=== PATIENT | female | born 1950 | race Caucasian/White ===

== ENCOUNTER 2017-12-28 11:00 | Inpatient (IN) | payer OTHER ==
[~2017-12-28] VITALS: Ht 162.6 cm; Wt 83.5 kg
[2017-12-28] MEDS ORDERED: COREG CR40 MG PO (12:18)
[2017-12-28] MEDS ORDERED: JANUVIA100 MG PO (12:18)
[2017-12-28] MEDS ORDERED: GLIPIZIDE ER10 MG PO (12:19)
[2017-12-28] MEDS ORDERED: CARDURA1 MG PO (12:19)
[2017-12-28] MEDS ORDERED: ZOCOR5 MG PO (12:23)
[2018-01-05] MEDS ORDERED: DOCUSATE SODIU100 MG PO (09:47)
[2018-01-05] MEDS ORDERED: PERCOCET 5-3251 EACH PO (09:48)
[2018-01-05] MEDS ORDERED: CLONAZEPAM1 MG PO (09:48)
== END 2018-01-05 15:07 | disposition home or self-care (01) | DRG 472 ==
LOC: O/R 01-04 05:00 → PED 01-04 05:00 → SURH 01-04 07:00 → PED 01-04 14:24
PROVIDERS: Orthopaedic Surgery Orthopaedic Surgery of the Spine
PROC: 0RG20A0 Fusion of 2 or more Cervical Vertebral Joints with Interbody Fusion Device, Anterior Approach, Anterior Column, Open Approach (ICD-10-PCS; 2018-01-04)
PROC: 0RT30ZZ Resection of Cervical Vertebral Disc, Open Approach (ICD-10-PCS; principal; 2018-01-04 07:00)
DX: M47.12 Other spondylosis with myelopathy, cervical region (principal); M50.022 Cervical disc disorder at C5-C6 level with myelopathy; I11.9 Hypertensive heart disease without heart failure; E11.9 Type 2 diabetes mellitus without complications